=== PATIENT | male | born 1995 ===

== ENCOUNTER 2018-06-10 13:40 | Emergency (ER) | payer OTHER ==
[2018-06-10 14:08] VITALS: PULSE 79; RESP 16; TEMP 98.4
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
[2018-06-10 16:11] VITALS: BP 115/72; O2SAT 99
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
== END 2018-06-10 16:11 | disposition home or self-care (01) ==
LOC: H.ER 13:40
DX: M54.5 Low back pain (principal); Y93.55 Activity, bike riding; M54.32 Sciatica, left side